=== PATIENT | female | born 1980 | race Caucasian/White ===

== ENCOUNTER 2023-10-03 21:42 | Emergency (ER) | payer BC, SELFPAY ==
[2023-10-03] VITALS (7 sets, daily range): BP systolic 112–116; BP diastolic 74–82; PULSE 105–121; TEMP 36.5; O2SAT 95–99; BMI 29.1
--- NOTE | 2023-10-03 21:49 | ECG_ITS ---
[facility] Test Date: 2023-10-03 Pat Name: KIMBERLEE BARFIELD Department: Room: - Gender: Female Manager Pharmacy: : 1980 Requested By: [id number] Order Number: [id number] Reading MD: REGINA GORDILLO Measurements Intervals [place] Rate: 107 P: 56 AR: 176 QRS: 68 QRSD: 90 T: 39 QT: 340 QTc: 402 Interpretive Statements 1120 Sinus tachycardia 2420 RSR (QR) in lead V1/V2, consistent with right ventricular conduction delay 9140 abnormal rhythm ECG Compared to ECG 08/14/2022 18:56:10 Sinus rhythm no longer present Electronically Signed On 10-04-2023 6:52:01 EDT by REGINA GORDILLO
--- NOTE | 2023-10-03 21:50 | ED_ITS ---
HPI HPI - Overdose General Chief Complaint: Overdose Stated Complaint: Overdose Time Seen by Provider: 10/03/23 21:48 History of Present Illness HPI Narrative: past history of drug use. Denies any drug use at this time. 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 found unresponsive in her drive way sitting in the car with the motor running. Squad describes pulse ox down to 30s. Give 2mg IV Narcan to which she responded. Arrives awake and feels cold. States she only took Motrin and Xanax. Denies any use of opiates Related Data Allergies Allergy/AdvReac Type Severity Reaction Status Date / Time amitriptyline [From Elavil] Allergy Hallucinati Verified 10/06/23 18:28 ng ciprofloxacin [From Cipro] Allergy Hives Verified 10/03/23 21:47 Opioid HPI Opioid Management Most Recent Opioid Data: Last COWS Score 3 10/03/23 22:30 Ur Phencyclidine Scrn Negative (NEGATIVE) 10/06/23 19:10 Review of Systems ROS Status of ROS 10 or more systems reviewed and unremark able except as noted in history and below Exam Constitutional Vital Signs, click to edit/add: Last Vital Signs Temp 97.7 F 10/03/23 21:47 Pulse 109 H 10/03/23 22:30 Resp 14 10/03/23 22:30 BP 112/74 10/03/23 21:56 Pulse Ox 97 10/03/23 22:30 O2 Del Method Room Air 10/03/23 21:47 Common normals: average body habitus, oriented x3, alert and well nourished [facility] Common normals: normocephalic and head/scalp atraumatic Eye Common normals: EOMs intact bilaterally and conjunctivae normal Respiratory Common normals: normal respiratory effort, no retractions, no use of accessory muscles and clear to auscultation bilaterally Cardio Common normals: regular rate, regular rhythm, S1 normal heart sound and S2 normal heart sound GI Common normals: Normal to inspection, nondistended, normoactive bowel sounds present, soft to palpation and non-tender Extremity Common normals: normal to inspection and full ROM Neuro Common normals: oriented x3, CN's II-XII intact bilaterally, moves all extremities and no focal motor deficits Psych Appearance: grossly normal Course Vital Signs Vital signs: Vital Signs Pulse Oximetry 97 10/03/23 21:46 Temperature 97.7 F 10/03/23 21:47 Pulse Rate 109 H 10/03/23 22:30 Respiratory Rate 14 10/03/23 22:30 Blood Pressure 112/74 10/03/23 21:56 Pulse Oximetry 97 10/03/23 22:30 Oxygen Delivery Method Room Air 10/03/23 21:47 MDM - Overdose MDM Narrative Medical decision making narrative: patient arrives via Squad and accompanied by the Police. Found sitting in her car in the driveway with the car running and unresponsive. Responded to 2mg Narcan IVP. Squad describes pulse ox dipping down into the 30s. She arrives awake and shivering. AxOx4 After the police left patient did not want any further testing and is standing a t the bedside getting dress stating she is leaving and does not want any testing and will not sign out AMA patient left with steady gait and very much awake. continues to deny use of opiates. Admits to past drug use. States she only took prescribed Xanan and motrin today. labs still pending but she does not plan on waiting for results Lab Data Labs: Lab Results 10/03/23 Range/Units 22:04 WBC 13.0 H (4.0-11.0) 10^3/uL RBC 4.39 (4.20-5.40) 10^6/uL Hgb 14.0 (12.0-16.0) g/dL Hct 42.0 (36.0-48.0) % MCV 95.7 (81.0-99.0) fL MCH 31.9 (26.7-34.0) pg MCHC 33.3 (29.9-35.2) g/dL RDW 12.8 (11.0-15.0) % Plt Count 291 (150-450) 10^3/uL MPV 9.1 L (9.5-13.5) fL Neut % (Auto) 68.5 (43.0-75.0) % Lymph % (Auto) 21.2 (20.5-60.0) % [place] % (Auto) 4.7 (1.7-12.0) % Eos % (Auto) 4.4 (0.9-7.0) % Baso % (Auto) 0.3 (0.2-2.0) % Neut # (Auto) 8.9 H (1.4-6.5) 10^3/uL Lymph # (Auto) 2.8 (1.2-3.8) 10^3/uL [place] # (Auto) 0.6 (0.3-0.8) 10^3/uL Eos # (Auto) 0.6 (0.0-0.7) 10^3/uL Baso # (Auto) 0.0 (0.0-0.1) 10^3/uL Abs Immat Gran (auto) 0.12 H (0.00-0.03) 10^3/uL Imm/Tot Granulo (auto) 0.9 H (0.0-0.5) % Sodium 140 (136-145) mmol/L Potassium 3.6 (3.5-5.1) mmol/L Chloride 106 (98-107) mmol/L Carbon Dioxide 31.3 (21.0-32.0) mmol/L Anion Gap 6.3 BUN 11.0 (7.0-18.0) mg/dL Creatinine 1.04 H (0.55-1.02) mg/dL Est GFR ( Amer) >60 (>=60) Est GFR (Non-Af Amer) 58 L (>=60) BUN/Creatinine Ratio 10.6 Glucose 143 H (74-106) mg/dL Calcium 8.3 L (8.5-10.1) mg/dL Total Bilirubin 0.1 L (0.2-1.0) mg/dL AST 16 (15-37) U/L ALT 21 (14-59) U/L Alkaline Phosphatase 56 (46-116) U/L Troponin I High Sens 4.1 (4.0-51.3) pg/mL Total Protein 7.0 (6.4-8.2) g/dL Albumin 3.4 (3.4-5.0) g/dL Globulin 3.6 g/dL Albumin/Globulin Ratio 0.9 Salicylates 3.1 (<=19.9) mg/dL Acetaminophen <2.8 L (10.0-30.0) ug/mL Ethanol Quant <3 mg/dL Discharge Plan Discharge Stand Alone Forms: Portal Instructions Chief Complaint: Overdose Clinical Impression: Drug overdose, Altered mental state Patient Disposition: Left Against Medical Advice Print Language: Lao Referrals: BRENT MONTIEL [Primary Care Provider] - 1 week Discharge Date/Time: 10/03/23 22:50
[2023-10-03 22:20] LABS: Basophils Percent Auto 0.3 % (0.2-2.0); Eosinophils Absolute Auto 0.6 10^3/uL (0.0-0.7); Eosinophils Percent Auto 4.4 % (0.9-7.0); Immature Granulocytes Abs Auto 0.12 10^3/uL (0.00-0.03); Immature Granulocytes Pct Auto 0.9 % (0.0-0.5); Lymphocytes Absolute Auto 2.8 10^3/uL (1.2-3.8); Lymphocytes Percent Auto 21.2 % (20.5-60.0); Mean Corpuscular HGB Conc 33.3 g/dL (29.9-35.2); Mean Corpuscular Hemoglobin 31.9 pg (26.7-34.0); Mean Corpuscular Volume 95.7 fL (81.0-99.0); Mean Platelet Volume 9.1 fL (9.5-13.5); Monocytes Absolute Auto 0.6 10^3/uL (0.3-0.8); Monocytes Percent Auto 4.7 % (1.7-12.0); Neutrophils Absolute Auto 8.9 10^3/uL (1.4-6.5); Neutrophils Percent Auto 68.5 % (43.0-75.0); Platelet Count 291 10^3/uL (150-450); Red Blood Count 4.39 10^6/uL (4.20-5.40); Red Cell Distribution Width 12.8 % (11.0-15.0)
--- NOTE | 2023-10-03 22:21 | PC.NURSE ---
Up to BR and back to room, ambulates without difficulty. Refuses chest xray, Dr. Sanches notified. [place] [employer] at bedside.
[2023-10-03 22:43] LABS: Alanine Aminotransferase 21 U/L (14-59); Albumin Globulin Ratio 0.9; Albumin Level 3.4 g/dL (3.4-5.0); Alkaline Phosphatase 56 U/L (46-116); Anion Gap 6.3; Aspartate Amino Transferase 16 U/L (15-37); BUN Creatinine Ratio 10.6; Bilirubin Total 0.1 mg/dL (0.2-1.0); Calcium 8.3 mg/dL (8.5-10.1); Carbon Dioxide 31.3 mmol/L (21.0-32.0); Chloride 106 mmol/L (98-107); Estimated GFR (African America >60 (>=60); Estimated GFR (Non-African Ame 58 (>=60); Ethanol <3 mg/dL; Globulin 3.6 g/dL; Glucose 143 mg/dL (74-106); Potassium 3.6 mmol/L (3.5-5.1); Salicylate 3.1 mg/dL (<=19.9); Sodium 140 mmol/L (136-145); Troponin I High Sensitivity 4.1 pg/mL (4.0-51.3)
[2023-10-03 22:48] LABS: Acetaminophen <2.8 ug/mL (10.0-30.0)
--- NOTE | 2023-10-03 22:48 | PC.NURSE ---
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 Dr. Sanches notified and he speaks with patient who continues to request to leave.
--- NOTE | 2023-10-04 15:27 | PC.NURSE ---
Fax received from [employer] for release of information on patient. Patients signature on release. Report given to [employer].
== END 2023-10-03 22:50 | disposition left against medical advice (07) ==
PROVIDERS: Emergency Provider Internal Medicine; PCP Family Medicine
DX: T50.901A Poisoning by unspecified drugs, medicaments and biological substances, accidental (unintentional), initial encounter (principal); R41.82 Altered mental status, unspecified
CPT/HCPCS: 36415; 80053; 80179; 80307; 80320; 80329; 84484; 85025; 93005; 99284

== ENCOUNTER 2023-10-06 18:00 | Emergency (ER) | payer BC, SELFPAY ==
[2023-10-06 18:21] VITALS: BP 151/91; PULSE 108; TEMP 37.3; O2SAT 98; BMI 29.8
--- NOTE | 2023-10-06 19:19 | ED_ITS ---
HPI HPI - General Adult General Chief complaint: Recheck/Abnormal Lab/Rx Stated complaint: DRUG SCREEN Time Seen by Provider: 10/06/23 19:08 Source: patient Mode of arrival: walk-in Limitations: no limitations History of Present Illness HPI narrative: Patient is a 42-year-old female who presents to the emergency department requesting a drug screen. She has no focal medical complaints at this time. She was seen in this emergency department several days ago after questionable seizure activity, the police were involved because she was in her vehicle at the time. She was brought to this emergency department and evaluated, she states she has had 3 similar episodes of seizure-like activity in the last year. She has an upcoming appointment to be evaluated by her PCP for neurology referral. She states she has been under a lot of stress since her mother and her 's uncle committed suicide last week. She adamantly denies drug use. She states she was told that she woke up after Narcan but she does not believe this is possible and she states that [employer]PS became involved, they instructed her to come to the emergency department for drug screen as 1 was not performed in the ER. Patient believes that she urinated for sample while in the ER but it was taken by police. She states she was told to come to the ER to have this performed tonight. Related Data Allergies Allergy/AdvReac Type Severity Reaction Status Date / Time amitriptyline [From Elavil] Allergy Hallucinati Verified 10/06/23 18:28 ng ciprofloxacin [From Cipro] Allergy Hives Verified 10/03/23 21:47 Opioid HPI Opioid Management Most Recent Opioid Data: Last COWS Score 3 10/03/23 22:30 Review of Systems ROS Constitutional Denies: fever or chills Ears, nose, mouth, and throat Denies: throat pain or nasal congestion Respiratory Denies: shortness of breath Gastrointestinal Denies: nausea or vomiting Integumentary/Breast Denies: rash Hematologic/Lymphatic Denies: easy bruising or easy bleeding Exam Narrative Exam Narrative: Gen.: Awake, alert, in no distress Head: Normocephalic, atraumatic ENT: Moist mucous membranes Respiratory: No respiratory distress Extremities: Moves extremities equally Psych: Normal mood and affect Neuro: No focal neuro deficit Skin: Warm, dry, intact Constitutional Vital Signs, click to edit/add: Last Vital Signs Temp 99.2 F 10/06/23 18:21 Pulse 108 H 10/06/23 18:21 Resp 18 10/06/23 18:21 BP 151/91 H 10/06/23 18:21 Pulse Ox 98 10/06/23 18:21 O2 Del Method Room Air 10/06/23 18:21 Course Vital Signs Vital signs: Vital Signs Temperature 99.2 F 10/06/23 18:21 Pulse Rate 108 H 10/06/23 18:21 Respiratory Rate 18 10/06/23 18:21 Blood Pressure 151/91 H 10/06/23 18:21 Pulse Oximetry 98 10/06/23 18:21 Oxygen Delivery Method Room Air 10/06/23 18:21 Temperature 99.2 F 10/06/23 18:21 Pulse Rate 108 H 10/06/23 18:21 Respiratory Rate 18 10/06/23 18:21 Blood Pressure 151/91 H 10/06/23 18:21 Pulse Oximetry 98 10/06/23 18:21 Oxygen Delivery Method Room Air 10/06/23 18:21 Medical Decision Making MDM Narrative Medical decision making narrative: Urine specimen was obtained and was sent for drug screen. Patient will be given a copy of her results, she was strongly encouraged to follow-up with neurology and her primary care provider for further evaluation and testing. She has no other medical complaints with stable vital signs at discharge. Return to the ER if symptoms change or worsen SUPERVISED APC VISIT, PHYSICIAN ATTESTATION: Based on the medical record the care appears appropriate. ? Medical Records Medical records reviewed: Yes I reviewed the patient's medical records Discharge Plan Discharge Stand Alone Forms: Portal Instructions Chief Complaint: Recheck/Abnormal Lab/Rx Clinical Impression: Encounter for drug screening Patient Disposition: Home, Self-Care Time of Disposition Decision: 19:19 Condition: Good Print Language: Montenegrin Referrals: Manjeet Fitzgerald DO [Physician] - As soon as possible BRENT MONTIEL [Primary Care Provider] - 1 week
[2023-10-06 19:36] LABS: Amphetamine Screen Urine NEGATIVE (NEGATIVE); Benzodiazepines Screen Urine POSITIVE (NEGATIVE); Cannabinoid Screen Urine NEGATIVE (NEGATIVE); Cocaine Screen Urine NEGATIVE (NEGATIVE); Methamphetamines Screen Urine NEGATIVE (NEGATIVE); Opiate Screen Urine NEGATIVE (NEGATIVE); Phencyclidine Screen Urine NEGATIVE (NEGATIVE)
[2023-10-06 19:37] LABS: Barbiturates Screen Urine NEGATIVE (NEGATIVE); Buprenorphine Screen Urine NEGATIVE (NEGATIVE); Methadone Screen Urine NEGATIVE (NEGATIVE); Oxycodone Screen Urine NEGATIVE (NEGATIVE); Tricyclic Antidepressant Urine NEGATIVE (NEGATIVE)
== END 2023-10-06 19:45 | disposition home or self-care (01) ==
PROVIDERS: Physician Assistant; Emergency Provider Emergency Medicine; PCP Family Medicine
DX: Z13.9 Encounter for screening, unspecified (principal)
CPT/HCPCS: 80307; 99283

== ENCOUNTER 2023-10-21 11:45 | Emergency (ER) | payer BC, SELFPAY ==
[2023-10-21 11:50] VITALS: BP 144/103; PULSE 100; TEMP 37.1; O2SAT 99; BMI 29.7
--- NOTE | 2023-10-21 12:26 | ECG_ITS ---
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
--- NOTE | 2023-10-21 12:31 | ED.GENADUL1 ---
HPI HPI - General Adult General Chief complaint: Psychiatric Symptoms Stated complaint: MENTAL HEALTH ISSUE Time Seen by Provider: 10/21/23 12:15 Source: patient Mode of arrival: walk-in Limitations: no limitations History of Present Illness HPI narrative: Patient is a 43-year-old female who is here for suicidal ideation with no attempt today. Patient mother back in December 22. Patient is taken no medications today tried her to self, she has suicidal ideation. Patient does not do any Illicit drugs or alcohol, she has had no attempts today. Patient does have a history of cutting. Patient is at bedside. Pain and has a history of anxiety, depression, major depression. Patient overdose and took a bottle of pills over 20 years ago. Patient did cut her left wrist approximately 3 months ago. Patient was admitted to the hospital 3 different times in 1 month 1.5 years ago for major depression, anxiety. Patient was at her mother's house today, cleaning it out. Patient and mother in November of last year. Patient had multiple triggers this morning at her mother's house that brought her into the ER today. Patient came to the ER willingly. Patient takes Xanax, patient does not take anything prescribed daily. Patient says that she has a lot of side effects to many modifications, patient is not taking anything prescribed daily currently besides Xanax. Patient has no gun at home. Patient wants to be in the ER today. Patient denies any alcohol use, patient has a addiction to opiates. Patient says that she had an episode 2 weeks ago where she blacked out and patient says that she tested positive for opiates a week ago but does not know how it got in her system. Patient says she drinks a lot of Gatorade daily. Patient says that she is not . No headache, chest pain, shortness of breath, nausea, vomiting, diarrhea. Patient is actively shaking and admittedly anxious. All systems are negative except as noted/marked. All systems reviewed and otherwise negative. Nurses note and vital signs reviewed and patient is not hypoxic. General: The patient appears anxious, shaking her arms and legs, not tremors, not seizure activity. Patient is resting uncomfortably on cart. Patient is not toxic, lethargic, or listless Skin: Warm, dry, no pallor noted. There is no rash noted. No petechiae, purpura. No signs of cutting, no signs of self-harm at this time. Head: Normocephalic, atraumatic Eye: Normal conjunctiva, no drainage, EOMI. PERRL Ears, Nose, Mouth, and Throat: oral mucosa is moist. Nares patent. Mouth without vesicles. Cardiovascular: Regular Rate and Rhythm, no murmur, gallop, rub Respiratory: Patient is in no distress, no accessory muscle use, lungs are clear to auscultation, no wheezing, rales or rhonchi Back: non-tender, no CVA tenderness bilaterally to percussion. No CT LS midline pain GI: no tenderness to palpation, no masses appreciated. No rebound, guarding, or rigidity noted. No distention Musculoskeletal: Patient has full range of motion of all of the extremities, no motor, sensory, or focal neurological deficits Neurological: A&O x4, normal speech Psychiatric: Cooperative, patient does admit to suicidal ideation, she has no plan at this time. Not homicidal. Not under the influence of alcohol or drugs. Related Data Home Medications ?Medication ?Instructions ?Recorded ?Confirmed alprazolam 1 mg tablet 1 mg PO TID PRN anxiety 10/21/23 10/21/23 estradiol 0.05 mg/24 hr weekly 1 patch transdermal .WEEKLY 10/21/23 10/21/23 transdermal patch ibuprofen 800 mg tablet 800 mg PO Q8H PRN fever or pain 10/21/23 10/21/23 Allergies Allergy/AdvReac Type Severity Reaction Status Date / Time amitriptyline [From Elavil] Allergy Hallucinati Verified 10/21/23 11:50 ng ciprofloxacin [From Cipro] Allergy Hives Verified 10/21/23 11:50 Opioid HPI Opioid Management Most Recent Opioid Data: Last COWS Score 3 10/03/23 22:30 Ur Phencyclidine Scrn Negative (NEGATIVE) 10/21/23 12:02 Exam Constitutional Vital Signs, click to edit/add: Last Vital Signs Temp 98.7 F 10/21/23 11:50 Pulse 100 H 10/21/23 11:50 Resp 18 10/21/23 11:50 BP 142/96 H 10/21/23 12:51 Pulse Ox 99 10/21/23 11:50 O2 Del Method Room Air 10/21/23 11:50 Course Vital Signs Vital signs: Vital Signs Temperature 98.7 F 10/21/23 11:50 Pulse Rate 100 H 10/21/23 11:50 Respiratory Rate 18 10/21/23 11:50 Blood Pressure 144/103 H 10/21/23 11:50 Pulse Oximetry 99 10/21/23 11:50 Oxygen Delivery Method Room Air 10/21/23 11:50 Temperature 98.7 F 10/21/23 11:50 Pulse Rate 100 H 10/21/23 11:50 Respiratory Rate 18 10/21/23 11:50 Blood Pressure 142/96 H 10/21/23 12:51 Pulse Oximetry 99 10/21/23 11:50 Oxygen Delivery Method Room Air 10/21/23 11:50 Medical Decision Making MDM Narrative Medical decision making narrative: Patient was given Ativan and Vistaril to help with anxiety. Patient was cleaning out her mother stuff today, she November 2022. Patient is having a triggered situation anxiety. Patient states she has had suicidal ideation today. No plan, no intent. Patient has been admitted 3 times in 1 month 1.5 years ago. Patient potassium was 3.1. She was given oral potassium to drink. There are opiates in her system, patient says 2 weeks ago she blacked out and she is tested positive for opiates last week and again today, but does not know how it got into her system. Patient has a history of opiate addiction. Patient is admitted and accepted by Dr. Myers at [facility]. Patient will be transferred and admitted for suicidal ideation. Patient wants to be admitted to the hospital, patient's been very pleasant to work with. See [facility] evaluation Critical care time 35 minutes exclusive from separate billable procedures that were performed. The following was considered in the determination of critical care but not limited to the level of medical decision making, intensive cardiac and/or respiratory monitoring, frequent vital sign monitoring, evaluation of laboratory studies, evaluation of radiographic studies, oxygen monitoring, and constant monitoring and speaking to family at bedside Lab Data Labs: Lab Results 10/21/23 10/21/23 Range/Units 12:02 12:10 WBC 9.6 (4.0-11.0) 10^3/uL RBC 4.56 (4.20-5.40) 10^6/uL Hgb 14.7 (12.0-16.0) g/dL Hct 42.8 (36.0-48.0) % MCV 93.9 (81.0-99.0) fL MCH 32.2 (26.7-34.0) pg MCHC 34.3 (29.9-35.2) g/dL RDW 12.8 (11.0-15.0) % Plt Count 226 (150-450) 10^3/uL MPV 9.9 (9.5-13.5) fL Neut % (Auto) 72.5 (43.0-75.0) % Lymph % (Auto) 20.9 (20.5-60.0) % [place] % (Auto) 5.3 (1.7-12.0) % Eos % (Auto) 0.5 L (0.9-7.0) % Baso % (Auto) 0.5 (0.2-2.0) % Neut # (Auto) 7.0 H (1.4-6.5) 10^3/uL Lymph # (Auto) 2.0 (1.2-3.8) 10^3/uL [place] # (Auto) 0.5 (0.3-0.8) 10^3/uL Eos # (Auto) 0.1 (0.0-0.7) 10^3/uL Baso # (Auto) 0.1 (0.0-0.1) 10^3/uL Abs Immat Gran (auto) 0.03 (0.00-0.03) 10^3/uL Imm/Tot Granulo (auto) 0.3 (0.0-0.5) % Sodium 137 (136-145) mmol/L Potassium 3.1 L (3.5-5.1) mmol/L Chloride 102 (98-107) mmol/L Carbon Dioxide 27.1 (21.0-32.0) mmol/L Anion Gap 11.0 BUN 8.0 (7.0-18.0) mg/dL Creatinine 1.16 H (0.55-1.02) mg/dL Est GFR ( Amer) >60 (>=60) Est GFR (Non-Af Amer) 51 L (>=60) BUN/Creatinine Ratio 6.9 Glucose 142 H (74-106) mg/dL Calcium 8.9 (8.5-10.1) mg/dL Total Bilirubin 0.3 (0.2-1.0) mg/dL AST 18 (15-37) U/L ALT 20 (14-59) U/L Alkaline Phosphatase 51 (46-116) U/L Total Protein 7.7 (6.4-8.2) g/dL Albumin 3.9 (3.4-5.0) g/dL Globulin 3.8 g/dL Albumin/Globulin Ratio 1.0 Urine Color Lt. yellow (YELLOW) Urine Clarity Clear (CLEAR) Urine pH 6.0 (5.0-9.0) Ur Specific [place] 1.010 (1.005-1.025) Urine Protein Negative (NEG/TRACE) mg/dL Urine Glucose (UA) Negative (NEGATIVE) mg/dL Urine Ketones Negative (NEGATIVE) mg/dL Urine Occult Blood Negative (NEGATIVE) Urine Nitrite Negative (NEGATIVE) Urine Bilirubin Negative (NEGATIVE) Urine Urobilinogen 0.2 (0.2-1.0) EU/dL Ur Leukocyte Esterase Negative (NEGATIVE) Urine HCG, Qual Negative (NEGATIVE) Salicylates 4.6 (<=19.9) mg/dL Urine Opiates Screen Negative (NEGATIVE) Ur Buprenorphine Scrn Negative (NEGATIVE) Ur Oxycodone Screen Positive A (NEGATIVE) Urine Methadone Screen Negative (NEGATIVE) Acetaminophen <2.0 L (10.0-30.0) ug/mL Ur Barbiturates Screen Negative (NEGATIVE) U Tricyclic Antidepress Negative (NEGATIVE) Ur Phencyclidine Scrn Negative (NEGATIVE) Ur Amphetamines Screen Negative (NEGATIVE) U Methamphetamines Scrn Negative (NEGATIVE) U Benzodiazepines Scrn Negative (NEGATIVE) Urine Cocaine Screen Negative (NEGATIVE) U Cannabinoids Screen Negative (NEGATIVE) Ethanol Quant <3 mg/dL ECG Data Attestation: I personally reviewed and interpreted this ECG as follows: (EKG interpretation. Normal sinus rhythm at 90 beats a minute. Normal axis deviation. Artifact noted. Nonspecific ST changes, flattening. QTc of 404) Discharge Plan Discharge Chief Complaint: Psychiatric Symptoms Clinical Impression: Suicide ideation, Situational anxiety Patient Disposition: [facility] Time of Disposition Decision: 14:04 Discharge Location: [facility] Discharge location: Dr Louis Ramirez Condition: Serious
[2023-10-21 12:40] LABS: Basophils Absolute Auto 0.1 10^3/uL (0.0-0.1); Basophils Percent Auto 0.5 % (0.2-2.0); Eosinophils Absolute Auto 0.1 10^3/uL (0.0-0.7); Eosinophils Percent Auto 0.5 % (0.9-7.0); Hematocrit 42.8 % (36.0-48.0); Hemoglobin 14.7 g/dL (12.0-16.0); Immature Granulocytes Abs Auto 0.03 10^3/uL (0.00-0.03); Immature Granulocytes Pct Auto 0.3 % (0.0-0.5); Lymphocytes Percent Auto 20.9 % (20.5-60.0); Mean Corpuscular HGB Conc 34.3 g/dL (29.9-35.2); Mean Corpuscular Hemoglobin 32.2 pg (26.7-34.0); Mean Corpuscular Volume 93.9 fL (81.0-99.0); Mean Platelet Volume 9.9 fL (9.5-13.5); Monocytes Absolute Auto 0.5 10^3/uL (0.3-0.8); Monocytes Percent Auto 5.3 % (1.7-12.0); Neutrophils Percent Auto 72.5 % (43.0-75.0); Platelet Count 226 10^3/uL (150-450); Red Blood Count 4.56 10^6/uL (4.20-5.40); Red Cell Distribution Width 12.8 % (11.0-15.0); White Blood Count 9.6 10^3/uL (4.0-11.0)
[2023-10-21 12:51] VITALS: BP 142/96
[2023-10-21 12:53] LABS: HCG Qualitative Urine* NEGATIVE (NEGATIVE); Internal Control Within Normal Limits
[2023-10-21 12:55] LABS: Alanine Aminotransferase 20 U/L (14-59); Albumin Level 3.9 g/dL (3.4-5.0); Alkaline Phosphatase 51 U/L (46-116); Aspartate Amino Transferase 18 U/L (15-37); BUN Creatinine Ratio 6.9; Bilirubin Total 0.3 mg/dL (0.2-1.0); Calcium 8.9 mg/dL (8.5-10.1); Carbon Dioxide 27.1 mmol/L (21.0-32.0); Chloride 102 mmol/L (98-107); Estimated GFR (African America >60 (>=60); Estimated GFR (Non-African Ame 51 (>=60); Globulin 3.8 g/dL; Glucose 142 mg/dL (74-106); Potassium 3.1 mmol/L (3.5-5.1); Salicylate 4.6 mg/dL (<=19.9); Sodium 137 mmol/L (136-145); Total Protein 7.7 g/dL (6.4-8.2)
[2023-10-21 12:58] LABS: Acetaminophen <2.0 ug/mL (10.0-30.0); Ethanol <3 mg/dL
[2023-10-21 13:19] LABS: Bilirubin Urine NEGATIVE (NEGATIVE); Blood Urine NEGATIVE (NEGATIVE); Clarity Urine CLEAR (CLEAR); Color Urine LT. YELLOW (YELLOW); Glucose Urine UA NEGATIVE (NEGATIVE); Ketones Urine NEGATIVE (NEGATIVE); Leukocyte Esterase Urine NEGATIVE (NEGATIVE); Nitrite Urine NEGATIVE (NEGATIVE); Protein Urine NEGATIVE (NEG/TRACE); Urobilinogen Urine 0.2 EU/dL (0.2-1.0)
[2023-10-21 13:20] LABS: Amphetamine Screen Urine NEGATIVE (NEGATIVE); Barbiturates Screen Urine NEGATIVE (NEGATIVE); Benzodiazepines Screen Urine NEGATIVE (NEGATIVE); Buprenorphine Screen Urine NEGATIVE (NEGATIVE); Cannabinoid Screen Urine NEGATIVE (NEGATIVE); Cocaine Screen Urine NEGATIVE (NEGATIVE); Methadone Screen Urine NEGATIVE (NEGATIVE); Methamphetamines Screen Urine NEGATIVE (NEGATIVE); Opiate Screen Urine NEGATIVE (NEGATIVE); Oxycodone Screen Urine POSITIVE (NEGATIVE); Phencyclidine Screen Urine NEGATIVE (NEGATIVE); Tricyclic Antidepressant Urine NEGATIVE (NEGATIVE)
[2023-10-21 13:27] LABS: Urine Microscopic Indicated NO
[2023-10-21] MEDS: HYDROXYZINE PAMOATE 25 MG CAPSULE 50 MG PO (14:39)
[2023-10-21] MEDS: LORAZEPAM 1 MG TABLET PO (14:39)
[2023-10-21] MEDS: POTASSIUM BICARBONATE/CIT 25 MEQ TABLET EFF 50 MEQ PO (14:39)
== END 2023-10-21 15:22 ==
PROVIDERS: Emergency Provider Emergency Medicine; PCP Family Medicine
DX: R45.851 Suicidal ideations (principal); F41.8 Other specified anxiety disorders; F32.9 Major depressive disorder, single episode, unspecified
CPT/HCPCS: 36415; 80053; 80179; 80307; 80320; 80329; 81003; 84703; 85025; 93005; 99285; Q0177

== ENCOUNTER 2024-06-10 20:36 | Emergency (ER) | payer BC, SELFPAY ==
[2024-06-10] VITALS (15 sets, daily range): BP systolic 82–134; BP diastolic 65–84; PULSE 85–102; TEMP 37.1; O2SAT 92–98; BMI 29.1
--- NOTE | 2024-06-10 21:11 | ECG_ITS ---
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 Measurements Intervals [place] Rate: 96 P: 50 MT: 164 QRS: 60 QRSD: 84 T: 41 QT: 344 QTc: 398 Interpretive Statements 1100 Sinus rhythm 9110 normal ECG Compared to ECG 10/21/2023 11:58:29 No significant changes Electronically Signed On 06-11-2024 20:24:06 EDT by DANILO FALCON M.D.
--- NOTE | 2024-06-10 21:12 | ED.URI1 ---
Documented by User: CHRIS Neff 06/10/24 21:53 HPI - URI/Sore Throat General Chief Complaint: Upper Respiratory Infection Stated Complaint: FLU A DIAGNOSIS Time Seen by Provider: 06/10/24 20:58 Source: patient Limitations: no limitations History of Present Illness HPI Narrative: 43-year-old female presents to the emergency department with complaint of not feeling well since this past Saturday. She was diagnosed with influenza A as an outpatient. She complains of fevers, chills, body aches. She has not been able to keep anything down due to nausea and vomiting. She has also had some diarrhea. Complains of some pain under her ribs which she thinks may be from her coughing or throwing up. + Generalized weakness, fatigue. + shortness of breath, myalgias, arthralgias Quality:?As above Severity:?Moderate Timing:?As above, constant, worsening Context: Normal setting and activity? Modifying factors:?None Associated symptoms: As above Related Data Home Medications ?Medication ?Instructions ?Recorded ?Confirmed alprazolam 1 mg tablet 1 mg PO TID PRN anxiety 10/21/23 10/21/23 estradiol 0.05 mg/24 hr weekly 1 patch transdermal .WEEKLY 10/21/23 10/21/23 transdermal patch ibuprofen 800 mg tablet 800 mg PO Q8H PRN fever or pain 10/21/23 10/21/23 Previous Rx's ?Medication ?Instructions ?Recorded ondansetron 4 mg disintegrating 4 mg PO Q6H PRN nausea and 06/11/24 tablet vomiting #14 tabs potassium chloride 20 mEq oral 20 meq PO BID low potassium #10 ea 06/11/24 packet Allergies Allergy/AdvReac Type Severity Reaction Status Date / Time quetiapine (From Seroquel) Allergy Severe Unknown Verified 06/10/24 20:48 amitriptyline (From Elavil) Allergy Hallucinati Verified 10/21/23 11:50 ng ciprofloxacin (From Cipro) Allergy Hives Verified 10/21/23 11:50 Review of Systems ROS Narrative CONST: + fever, chills HENT: + congestion, sore throat EYES: Denies eye redness, visual disturbance RESP: + cough, shortness of breath CV: Denies chest pain, palpitations GI: + abd pain, nausea, vomiting, diarrhea : Denies dysuria, flank pain MS: Denies arthralgias, myalgias SKIN: Denies color change, rash NEURO: Denies numbness, weakness PSYCHIATRIC: Denies confusion, agitation PFSH PFSH Social History Little interest or pleasure in doing things: not at all Feeling down, depressed, or hopeless: not at all Exam Narrative Exam Narrative: Vital signs reviewed Nurses notes noted CONST: Nontoxic, ill appearing, well nourished, in no distress.? No diaphoresis.?? HENT: normocephalic, atraumatic, dry mucous membrane, no abnormalities of the nose noted, hearing normal EYES: normal appearing conjunctiva, no apparent discharge bilat NECK: normal appearance CV: normal rate, regular rhythm, no murmur RESP: normal effort, speaking in complete sentences. Lung sounds clear and equal bilat.? No wheezes, rales, rhonchi GI: normal bowel sounds, soft, no distension, nontender : no CVA tenderness MS: no edema, + bilat lower extremity tenderness. Patient is in a walking boot secondary to a foot fracture SKIN: no pallor NEURO: A&Ox 3, no focal findings PSYCH: normal mood, affect Constitutional Vital Signs, click to edit/add: Last Vital Signs Temp 98.8 F 06/10/24 20:42 Pulse 87 06/11/24 00:31 Resp 14 06/11/24 00:31 BP 97/56 06/11/24 00:31 Pulse Ox 94 L 06/10/24 23:31 O2 Del Method Room Air 06/10/24 21:03 Course Vital Signs Vital signs: Vital Signs Temperature 98.8 F 06/10/24 20:42 Pulse Rate 102 H 06/10/24 20:42 Respiratory Rate 20 06/10/24 20:42 Blood Pressure 115/82 06/10/24 20:42 Pulse Oximetry 98 06/10/24 20:42 Oxygen Delivery Method Room Air 06/10/24 20:42 Temperature 98.8 F 06/10/24 20:42 Pulse Rate 87 06/11/24 00:31 Respiratory Rate 14 06/11/24 00:31 Blood Pressure 97/56 06/11/24 00:31 Pulse Oximetry 94 L 06/10/24 23:31 Oxygen Delivery Method Room Air 06/10/24 21:03 MDM - URI/Sore Throat MDM Narrative Medical decision making narrative: This is a pleasant 43-year-old female who presents to the emergency department for evaluation of fevers, nausea, vomiting, diarrhea, shortness of breath, cough, body aches, leg pains since this past Saturday. Tested positive for influenza A. Has not been able to keep down solids or liquids. On arrival, afebrile, tachycardic,otherwise, vital signs are stable Exam, nontoxic, ill appearing patient in no distress. + dry mucous membranes. No other remarkable findings on HEENT exam. Heart regular rate and rhythm. Lung sounds are little diminished, but patient very easy to start coughing attempts at taking a deep breath. She is speaking in complete sentences, not tachypneic. No respiratory distress. Abdomen soft, nontender. Her right lower extremity is in a walking boot secondary to foot fracture. Favor dehydration, influenza A History and Record Review Additional records reviewed: No records Additional Tests and Interventions ECG: See below IV Fluids:hydration/inability to tolerate PO PLEASE NOTE: Portions of the medical record may have been produced using electronic experimental mechanic electrical and may contain errors with respect to translation of words which may not have been identified prior to finalization of the chart. Medical Records Attestation: I reviewed the patient's medical records. Lab Data Attestation: I reviewed the patient's lab results. Labs: Lab Results 06/10/24 Range/Units 21:00 WBC 6.2 (4.0-11.0) 10^3/uL RBC 4.81 (4.20-5.40) 10^6/uL Hgb 15.1 (12.0-16.0) g/dL Hct 44.0 (36.0-48.0) % MCV 91.5 (81.0-99.0) fL MCH 31.4 (26.7-34.0) pg MCHC 34.3 (29.9-35.2) g/dL RDW 12.5 (11.0-15.0) % Plt Count 143 L (150-450) 10^3/uL MPV 10.5 (9.5-13.5) fL Neut % (Auto) 52.8 (43.0-75.0) % Lymph % (Auto) 32.6 (20.5-60.0) % Hamilton % (Auto) 12.2 H (1.7-12.0) % Eos % (Auto) 1.8 (0.9-7.0) % Baso % (Auto) 0.3 (0.2-2.0) % Neut # (Auto) 3.3 (1.4-6.5) 10^3/uL Lymph # (Auto) 2.0 (1.2-3.8) 10^3/uL Hamilton # (Auto) 0.8 (0.3-0.8) 10^3/uL Eos # (Auto) 0.1 (0.0-0.7) 10^3/uL Baso # (Auto) 0.0 (0.0-0.1) 10^3/uL Abs Immat Gran (auto) 0.02 (0.00-0.03) 10^3/uL Imm/Tot Granulo (auto) 0.3 (0.0-0.5) % D-Dimer 0.57 (<=0.59) mg/L FEU Sodium 136 (136-145) mmol/L Potassium 3.1 L (3.5-5.1) mmol/L Chloride 98 (98-107) mmol/L Carbon Dioxide 28.0 (21.0-32.0) mmol/L Anion Gap 13.1 BUN 13.0 (7.0-18.0) mg/dL Creatinine 1.28 H (0.55-1.02) mg/dL Est GFR ( Amer) 55 L (>=60 mL/min/1.73m^2) Est GFR (Non-Af Amer) 46 L (>=60 mL/min/1.73m^2) BUN/Creatinine Ratio 10.2 Glucose 97 (74-106) mg/dL Calcium 8.7 (8.5-10.1) mg/dL Magnesium 2.1 (1.8-2.4) mg/dL Total Bilirubin 0.4 (0.2-1.0) mg/dL AST 26 (15-37) U/L ALT 32 (14-59) U/L Alkaline Phosphatase 42 L (46-116) U/L Total Protein 7.6 (6.4-8.2) g/dL Albumin 3.7 (3.4-5.0) g/dL Globulin 3.9 g/dL Albumin/Globulin Ratio 0.9 Lipase 47.0 (16.0-77.0) U/L Serum HCG, Qual Negative (NEGATIVE) Discharge Plan Discharge Chief Complaint: Upper Respiratory Infection Clinical Impression: Influenza A, Acute dehydration, Hypokalemia, Nausea vomiting and diarrhea Patient Disposition: Home, Self-Care Time of Disposition Decision: 00:50 Condition: Good Mode of Transportation: Private Vehicle Prescriptions / Home Meds: New potassium chloride 20 mEq packet 20 meq PO BID Qty: 10 0RF ondansetron 4 mg tablet,disintegrating 4 mg PO Q6H PRN (Reason: nausea and vomiting) Qty: 14 0RF No Action alprazolam 1 mg tablet 1 mg PO TID PRN (Reason: anxiety) estradiol 0.05 mg/24 hr patch weekly 1 patch transdermal .WEEKLY ibuprofen 800 mg tablet 800 mg PO Q8H PRN (Reason: fever or pain) Print Language: Kosovan Instructions: Influenza (ED), Acute Nausea and Vomiting (ED) Referrals: BRENT MONTIEL [Primary Care Provider] - 1 week Discharge Date/Time: 06/11/24 01:07 Documented by User: Sapna Gloria DO 06/11/24 05:21 HPI - URI/Sore Throat General Chief Complaint: Upper Respiratory Infection Stated Complaint: FLU A DIAGNOSIS Time Seen by Provider: 06/10/24 20:58 History of Present Illness HPI Narrative: 43-year-old female presents to the emergency department with complaint of not feeling well since this past Saturday. She was diagnosed with influenza A as an outpatient. She complains of fevers, chills, body aches. She has not been able to keep anything down due to nausea and vomiting. She has also had some diarrhea. Complains of some pain under her ribs which she thinks may be from her coughing or throwing up. + Generalized weakness, fatigue. + shortness of breath, myalgias, arthralgias Quality:?As above Severity:?Moderate Timing:?As above, constant, worsening Context: Normal setting and activity? Modifying factors:?None Associated symptoms: As above Star contribution: Patient was signed out to me at 10 PM by my colleague. I am following up on a patient is presenting for nausea, vomiting, diarrhea with a documented history of influenza A positive. She received 2 L of fluid, Zofran, Pepcid, Toradol. Her potassium was low at 3.1 and she was so nauseous he was unable to tolerate p.o. version. Therefore 40 mill equivalents of potassium p.o. was being provided. She had an ultrasound done of the left lower extremity because she was initially complaining of some shortness of breath ultrasound of the left lower extremity is negative. Patient had a chest x-ray which was negative for any acute cardiopulmonary process. At this time were pending her administration of potassium. I went in and introduced myself to the patient and confirmed that I understood her HPI well. Patient verified. Related Data Home Medications ?Medication ?Instructions ?Recorded ?Confirmed alprazolam 1 mg tablet 1 mg PO TID PRN anxiety 10/21/23 10/21/23 estradiol 0.05 mg/24 hr weekly 1 patch transdermal .WEEKLY 10/21/23 10/21/23 transdermal patch ibuprofen 800 mg tablet 800 mg PO Q8H PRN fever or pain 10/21/23 10/21/23 Previous Rx's ?Medication ?Instructions ?Recorded ondansetron 4 mg disintegrating 4 mg PO Q6H PRN nausea and 06/11/24 tablet vomiting #14 tabs potassium chloride 20 mEq oral 20 meq PO BID low potassium #10 ea 06/11/24 packet Allergies Allergy/AdvReac Type Severity Reaction Status Date / Time quetiapine (From Seroquel) Allergy Severe Unknown Verified 06/10/24 20:48 amitriptyline (From Elavil) Allergy Hallucinati Verified 10/21/23 11:50 ng ciprofloxacin (From Cipro) Allergy Hives Verified 10/21/23 11:50 PFSH PFSH Social History Little interest or pleasure in doing things: not at all Feeling down, depressed, or hopeless: not at all Exam Constitutional Vital Signs, click to edit/add: Last Vital Signs Temp 98.8 F 06/10/24 20:42 Pulse 87 06/11/24 00:31 Resp 14 06/11/24 00:31 BP 97/56 06/11/24 00:31 Pulse Ox 94 L 06/10/24 23:31 O2 Del Method Room Air 06/10/24 21:03 Course Reevaluation(s) Reevaluation #1: Star Contribution: I went in and introduced myself to the patient. I let her know what studies we were waiting for and kind of the course of what the rest of the emergency department visit will be. At this point appears to be completing the potassium. Unfortunately the patient has not had any relief of her headache. She states that she takes Toradol and tramadol at home and nothing is helping her headache. Unfortunately this headache is likely from the influenza A and there is really nothing more that is going to suffice analgesic management. Time: 23:05 Reevaluation #2: Patient wants something else for her headache. We will try Methylprednisolone. Time: 00:07 Vital Signs Vital signs: Vital Signs Temperature 98.8 F 06/10/24 20:42 Pulse Rate 102 H 06/10/24 20:42 Respiratory Rate 20 06/10/24 20:42 Blood Pressure 115/82 06/10/24 20:42 Pulse Oximetry 98 06/10/24 20:42 Oxygen Delivery Method Room Air 06/10/24 20:42 Temperature 98.8 F 06/10/24 20:42 Pulse Rate 87 06/11/24 00:31 Respiratory Rate 14 06/11/24 00:31 Blood Pressure 97/56 06/11/24 00:31 Pulse Oximetry 94 L 06/10/24 23:31 Oxygen Delivery Method Room Air 06/10/24 21:03 MDM - URI/Sore Throat MDM Narrative Medical decision making narrative: This is a pleasant 43-year-old female who presents to the emergency department for evaluation of fevers, nausea, vomiting, diarrhea, shortness of breath, cough, body aches, leg pains since this past Saturday. Tested positive for influenza A. Has not been able to keep down solids or liquids. On arrival, afebrile, tachycardic,otherwise, vital signs are stable Exam, nontoxic, ill appearing patient in no distress. + dry mucous membranes. No other remarkable findings on HEENT exam. Heart regular rate and rhythm. Lung sounds are little diminished, but patient very easy to start coughing attempts at taking a deep breath. She is speaking in complete sentences, not tachypneic. No respiratory distress. Abdomen soft, nontender. Her right lower extremity is in a walking boot secondary to foot fracture. Favor dehydration, influenza A History and Record Review Additional records reviewed: No records Additional Tests and Interventions ECG: See below IV Fluids:hydration/inability to tolerate PO PLEASE NOTE: Portions of the medical record may have been produced using electronic experimental mechanic electrical and may contain errors with respect to translation of words which may not have been identified prior to finalization of the chart. Star Contribution: Patient no longer wants to have the rest of the potassium would like to go home. We will give her an oral alternative. Differential Diagnosis Differential diagnosis: Likely upper respiratory infection, croup, otitis media, sinusitis, viral infection, bronchitis, influenza and pharyngitis Medical Records Attestation: I reviewed the patient's medical records. Lab Data Labs: Lab Results 06/10/24 Range/Units 21:00 WBC 6.2 (4.0-11.0) 10^3/uL RBC 4.81 (4.20-5.40) 10^6/uL Hgb 15.1 (12.0-16.0) g/dL Hct 44.0 (36.0-48.0) % MCV 91.5 (81.0-99.0) fL MCH 31.4 (26.7-34.0) pg MCHC 34.3 (29.9-35.2) g/dL RDW 12.5 (11.0-15.0) % Plt Count 143 L (150-450) 10^3/uL MPV 10.5 (9.5-13.5) fL Neut % (Auto) 52.8 (43.0-75.0) % Lymph % (Auto) 32.6 (20.5-60.0) % Hamilton % (Auto) 12.2 H (1.7-12.0) % Eos % (Auto) 1.8 (0.9-7.0) % Baso % (Auto) 0.3 (0.2-2.0) % Neut # (Auto) 3.3 (1.4-6.5) 10^3/uL Lymph # (Auto) 2.0 (1.2-3.8) 10^3/uL Hamilton # (Auto) 0.8 (0.3-0.8) 10^3/uL Eos # (Auto) 0.1 (0.0-0.7) 10^3/uL Baso # (Auto) 0.0 (0.0-0.1) 10^3/uL Abs Immat Gran (auto) 0.02 (0.00-0.03) 10^3/uL Imm/Tot Granulo (auto) 0.3 (0.0-0.5) % D-Dimer 0.57 (<=0.59) mg/L FEU Sodium 136 (136-145) mmol/L Potassium 3.1 L (3.5-5.1) mmol/L Chloride 98 (98-107) mmol/L Carbon Dioxide 28.0 (21.0-32.0) mmol/L Anion Gap 13.1 BUN 13.0 (7.0-18.0) mg/dL Creatinine 1.28 H (0.55-1.02) mg/dL Est GFR ( Amer) 55 L (>=60 mL/min/1.73m^2) Est GFR (Non-Af Amer) 46 L (>=60 mL/min/1.73m^2) BUN/Creatinine Ratio 10.2 Glucose 97 (74-106) mg/dL Calcium 8.7 (8.5-10.1) mg/dL Magnesium 2.1 (1.8-2.4) mg/dL Total Bilirubin 0.4 (0.2-1.0) mg/dL AST 26 (15-37) U/L ALT 32 (14-59) U/L Alkaline Phosphatase 42 L (46-116) U/L Total Protein 7.6 (6.4-8.2) g/dL Albumin 3.7 (3.4-5.0) g/dL Globulin 3.9 g/dL Albumin/Globulin Ratio 0.9 Lipase 47.0 (16.0-77.0) U/L Serum HCG, Qual Negative (NEGATIVE) Imaging Data Venous US: Attestation: I have reviewed the pertinent imaging results. Radiologist's impression: Impression: No DVT Chest x-ray: Attestation: I have reviewed the pertinent imaging results. Radiologist's impression: Impression: No acute cardiopulmonary disease Discharge Plan Discharge Chief Complaint: Upper Respiratory Infection Clinical Impression: Influenza A, Acute dehydration, Hypokalemia, Nausea vomiting and diarrhea Patient Disposition: Home, Self-Care Time of Disposition Decision: 00:50 Condition: Good Mode of Transportation: Private Vehicle Prescriptions / Home Meds: New potassium chloride 20 mEq packet 20 meq PO BID Qty: 10 0RF ondansetron 4 mg tablet,disintegrating 4 mg PO Q6H PRN (Reason: nausea and vomiting) Qty: 14 0RF No Action alprazolam 1 mg tablet 1 mg PO TID PRN (Reason: anxiety) estradiol 0.05 mg/24 hr patch weekly 1 patch transdermal .WEEKLY ibuprofen 800 mg tablet 800 mg PO Q8H PRN (Reason: fever or pain) Print Language: Kosovan Instructions: Influenza (ED), Acute Nausea and Vomiting (ED) Referrals: BRENT MONTIEL [Primary Care Provider] - 1 week Discharge Date/Time: 06/11/24 01:07
[2024-06-10] MEDS: ONDANSETRON PF 4 MG/2 ML VIAL IV (21:26)
[2024-06-10] MEDS: FAMOTIDINE/PF 20 MG/2 ML VIAL IV (21:27)
[2024-06-10] MEDS: 0.9 % SODIUM CHLORIDE 1,000 ML 999 ML IV (21:27)
[2024-06-10] MEDS: KETOROLAC TROMETHAMINE 30 MG/ML VIAL 15 MG IVP (21:27)
[2024-06-10 21:32] LABS: Basophils Percent Auto 0.3 % (0.2-2.0); Eosinophils Absolute Auto 0.1 10^3/uL (0.0-0.7); Eosinophils Percent Auto 1.8 % (0.9-7.0); Hemoglobin 15.1 g/dL (12.0-16.0); Immature Granulocytes Abs Auto 0.02 10^3/uL (0.00-0.03); Immature Granulocytes Pct Auto 0.3 % (0.0-0.5); Lymphocytes Percent Auto 32.6 % (20.5-60.0); Mean Corpuscular HGB Conc 34.3 g/dL (29.9-35.2); Mean Corpuscular Hemoglobin 31.4 pg (26.7-34.0); Mean Corpuscular Volume 91.5 fL (81.0-99.0); Mean Platelet Volume 10.5 fL (9.5-13.5); Monocytes Absolute Auto 0.8 10^3/uL (0.3-0.8); Monocytes Percent Auto 12.2 % (1.7-12.0); Neutrophils Absolute Auto 3.3 10^3/uL (1.4-6.5); Neutrophils Percent Auto 52.8 % (43.0-75.0); Platelet Count 143 10^3/uL (150-450); Red Blood Count 4.81 10^6/uL (4.20-5.40); Red Cell Distribution Width 12.5 % (11.0-15.0); White Blood Count 6.2 10^3/uL (4.0-11.0)
[2024-06-10 21:44] LABS: D Dimer 0.57 mg/L FEU (<=0.59)
[2024-06-10 21:46] LABS: Alanine Aminotransferase 32 U/L (14-59); Albumin Globulin Ratio 0.9; Albumin Level 3.7 g/dL (3.4-5.0); Alkaline Phosphatase 42 U/L (46-116); Anion Gap 13.1; Aspartate Amino Transferase 26 U/L (15-37); BUN Creatinine Ratio 10.2; Bilirubin Total 0.4 mg/dL (0.2-1.0); Calcium 8.7 mg/dL (8.5-10.1); Chloride 98 mmol/L (98-107); Estimated GFR (African America 55 (>=60 mL/min/1.73m^2); Estimated GFR (Non-African Ame 46 (>=60 mL/min/1.73m^2); Globulin 3.9 g/dL; Glucose 97 mg/dL (74-106); Magnesium 2.1 mg/dL (1.8-2.4); Potassium 3.1 mmol/L (3.5-5.1); Sodium 136 mmol/L (136-145); Total Protein 7.6 g/dL (6.4-8.2)
[2024-06-10 21:54] LABS: HCG Qualitative NEGATIVE (NEGATIVE); Internal Control Within Normal Limits
[2024-06-10] MEDS: POTASSIUM CHLORIDE IN 0.9%NACL 1,000 ML 250 ML IV (22:54)
[2024-06-10] MEDS: ACETAMINOPHEN 500 MG TABLET 1000 MG PO (23:02)
[2024-06-11] VITALS: PULSE 91
[2024-06-11 00:02] VITALS: BP 85/55; PULSE 90
[2024-06-11 00:04] VITALS: BP 100/55; PULSE 87
[2024-06-11] MEDS: 0.9 % SODIUM CHLORIDE 1,000 ML 999 ML IV (00:06)
[2024-06-11] MEDS: METHYLPREDNISOLONE SOD SUCC PF 125 MG/2 ML VIAL IVP (00:26)
[2024-06-11 00:30] VITALS: PULSE 86
[2024-06-11 00:31] VITALS: BP 97/56; PULSE 87
== END 2024-06-11 01:07 | disposition home or self-care (01) ==
PROVIDERS: Physician Assistant; Emergency Provider Emergency Medicine; PCP Family Medicine
DX: E86.0 Dehydration (principal); J10.1 Influenza due to other identified influenza virus with other respiratory manifestations; E87.6 Hypokalemia; R11.2 Nausea with vomiting, unspecified; R19.7 Diarrhea, unspecified; M79.605 Pain in left leg; M79.604 Pain in right leg
CPT/HCPCS: 36415; 71046; 80053; 81001; 83690; 83735; 84703; 85025; 85378; 93005; 93970; 96361; 96365; 96366; 96375; 99285; J1885; J2405; J2919; J3490